=== PATIENT | female | born 1980 | race Caucasian/White ===

== ENCOUNTER → 2017-02-27 | Outpatient (CLI) | payer OTHER ==
--- NOTE | 2017-02-27 17:58 | Diagnostic Imaging Report ---
INDICATION: survey. TECHNIQUE: Multiple real-time grayscale images were obtained over the gravid uterus. COMPARISON: None FINDINGS: Jimenez gestation was observed in variable position during the study. The anterior placenta appeared normal. There was no abruption or previa. The amniotic fluid volume was within normal limits. The nondilated cervix measures greater than 4 cm. Biometrical measurements correlate with an average age of 20 weeks 5 days, reflecting normal growth from initial exam. The anatomical survey was unremarkable. IMPRESSION: Jimenez gestation today measures 20 weeks 5 days, reflecting normal growth from prior. Variable position with anterior placenta. No abruption or previa and a normal anatomical survey. Biometrical measurements are as follows: Biparietal 4.97 cm, age 21 weeks 1 days. Head circumference 18.50 cm, age 20 weeks 6 days. Abdominal circumference 15.43 cm, age 20 weeks 5 days. Femur length 3.18 cm, age 20 weeks 0 days. Sonographic estimate age: 20 weeks 5 days. Sonographic estimated date of delivery: 07/12/2017. Estimated Weight: 349 gm (+/- 51 gm). LMP percentile: 41%. heart rate: 147 beats per minute. number: 1 of 1. Dictated by: Dictated on workstation # [id number]
== END ==
LOC: RAD 16:25
PROVIDERS: ATTEND Obstetrics & Gynecology
DX: Z34.92 Encounter for supervision of normal pregnancy, unspecified, second trimester (principal); Z3A.20 20 weeks gestation of pregnancy
CPT/HCPCS: 76805

== ENCOUNTER 2017-05-22 08:52 | Outpatient (RCR) | payer MEDICAID ==
[2017-05-16 12:27] VITALS: BP 130/71
[2017-05-16] MEDS: IRON SUCROSE 300 MG/NS 250 ML (IVPB) IV SCH ×2 (13:06)
[2017-05-16 15:02] VITALS: BP 130/71
[2017-05-18 09:11] VITALS: BP 121/79
[2017-05-18] MEDS: IRON SUCROSE 300 MG/NS 250 ML (IVPB) IV SCH ×2 (09:14)
[2017-05-18 10:54] VITALS: BP 121/79
[~2017-05-22] VITALS: Ht 165.1 cm; Wt 97.5 kg
[2017-05-22 09:25] VITALS: BP 131/65
[2017-05-22] MEDS: IRON SUCROSE 300 MG/NS 250 ML (IVPB) IV SCH ×2 (09:25)
[2017-05-22 10:55] VITALS: BP 131/65
== END 2017-05-22 11:02 | disposition home or self-care (01) ==
LOC: SDC 08:52
PROVIDERS: ATTEND Obstetrics & Gynecology
DX: O99.013 Anemia complicating pregnancy, third trimester (principal); D64.9 Anemia, unspecified; R79.0 Abnormal level of blood mineral
CPT/HCPCS: 96365

== ENCOUNTER 2017-07-06 08:05 | Inpatient (IN) | payer MEDICAID ==
[2017-07-06] VITALS (64 sets, daily range): BP systolic 100–143; BP diastolic 52–97
[~2017-07-06] VITALS: Ht 165.1 cm; Wt 108.9 kg
[2017-07-06] MEDS ORDERED: D5 LR IV SOLUTION 1,000 ML IV ONE (08:22)
--- OUTSIDE RECORDS SUMMARY | 2017-07-06 08:24 | XMS REPORT ---
Author Author JERRELL SILVERMAN Organization [employer] Address Unknown Phone Unavailable Care Team Providers Care Banquet Director Name Role Phone JERRELL SILVERMAN CP Unavailable Allergies No Known Allergies Problems Problem Type Condition ICD-9 Code Onset Dates Condition Status Problem Acute upper respiratory infections of unspecified site 465.9 Active Problem Acute pharyngitis 462 Active Problem Urinary tract infection, site not specified 599.0 Active Assessment Dental examination V72.2 Active Problem Unspecified labyrinthitis 386.30 Active Problem examination or test, negative result V72.41 Active Problem Screening for unspecified malignant neoplasm V76.9 Active Problem Unspecified disorder of skin and subcutaneous tissue 709.9 Active Problem Counseling on substance use and abuse V65.42 Active Problem Pain in joint, pelvic region and thigh 719.45 Active Problem Screening examination for venereal disease V74.5 Active Problem Acute sinusitis, unspecified 461.9 Active Medications No Known Medications Procedures Procedure Coding System Code Date INTRAORL-PERIAPICAL 1 FILM 52091 CPT-4 D0220 Nov 19, 2014 BITEWING - SINGLE FILM CPT-4 D0270 Nov 19, 2014 LTD ORAL EVALUATION - PROBLEM FOCUS CPT-4 D0140 Nov 19, 2014 EXTRAC ERUPTED TOOTH/EXPOSED ROOT CPT-4 D7140 Nov 19, 2014 Results No Known Results Summary Purpose [employer] Submission
[2017-07-06] MEDS: D5 LR IV SOLUTION 1,000 ML IV SCH ×2 (08:40→16:26)
[2017-07-06] MEDS ORDERED: OXYTOCIN/NORMAL SALINE 500 ML IV SCH (09:04)
[2017-07-06] MEDS ORDERED: MINERAL OIL CONCENTRATE 99.9% 15 ML UDC TOP PRN (09:15)
[2017-07-06 09:22] LABS: BASOPHILS % (AUTO) 0 % (0-10); EOSINOPHILS # (AUTO) 0.3 10^3/uL (0.0-0.3); EOSINOPHILS % (AUTO) 2 % (0-10); HEMATOCRIT 28 % (35-52); HEMOGLOBIN 9.2 G/DL (11.5-16.0); LYMPHOCYTES # (AUTO) 1.3 X 10^3 (1.0-4.0); LYMPHOCYTES % (AUTO) 12 % (12-44); MEAN CORPUSCULAR HEMOGLOBIN 26 PG (25-34); MEAN CORPUSCULAR HGB CONC 33 G/DL (32-36); MEAN CORPUSCULAR VOLUME 79 FL (80-99); MEAN PLATELET VOLUME 9.3 FL (7.4-10.4); MONOCYTES # (AUTO) 0.6 X 10^3 (0.0-1.0); MONOCYTES % (AUTO) 6 % (0-12); NEUTROPHILS # (AUTO) 8.8 X 10^3 (1.8-7.8); NEUTROPHILS % (AUTO) 79 % (42-75); PLATELET COUNT 393 10^3/uL (130-400); RED BLOOD COUNT 3.56 10^6/uL (4.35-5.85); RED CELL DISTRIBUTION WIDTH 17.6 % (10.0-14.5)
[2017-07-06] MEDS ORDERED: MISOPROSTOL 100 MCG (CYTOTEC) TAB PO NR (09:30)
[2017-07-06 09:34] LABS: BILIRUBIN,URINE NEGATIVE (NEGATIVE); CLARITY,URINE SLIGHTLY CLOUDY; COLOR,URINE YELLOW; GLUCOSE, URINE (UA) NEGATIVE (NEGATIVE); KETONES,URINE NEGATIVE (NEGATIVE); LEUKOCYTE ESTERASE ,URINE 3+ (NEGATIVE); NITRITE,URINE NEGATIVE (NEGATIVE); PH,URINE 5 (5-9); PROTEIN,URINE NEGATIVE (NEGATIVE); UROBILINOGEN,URINE NORMAL (NORMAL)
[2017-07-06 09:52] LABS: BACTERIA,URINE LARGE /HPF
[2017-07-06] MEDS: LACTATED RINGERS 1,000 ML IV SCH ×3 (12:30→23:59)
[2017-07-06] MEDS ORDERED: SUFENTA 0.6MCG/ML BUPIVA 0.125 100 ML ONE (12:39)
[2017-07-06] MEDS: EPIDURAL (SUFENTA 0.6MCG/ML BUPIVA 0.125%) 100 ML BAG EPI SCH ×2 (13:19→19:42)
[2017-07-06] MEDS ORDERED: ONDANSETRON 4 MG/2 ML (SDV) Z0FRAN IV PRN (13:30)
[2017-07-06] MEDS ORDERED: NALOXONE 0.4 MG/ML 1 ML (NARCAN) VIAL IV PRN ×2 (13:30)
[2017-07-06] MEDS ORDERED: METOCLOPRAMIDE INJ 10 MG/2 ML (REGLAN) IV PRN (13:30)
[2017-07-06] MEDS ORDERED: diphenhydrAMINE 50 MG/ML INJ (BENADRYL) IV PRN (13:30)
[2017-07-06] MEDS ORDERED: fentaNYL INJECTION 100 MCG/2 ML AMP ONE ×2 (17:59→23:34)
[2017-07-06] MEDS ORDERED: BUPIVACAINE 0.25% 30 ML (SENSORCAINE) VIAL ONE (17:59)
[2017-07-06] MEDS ORDERED: LIDOCAINE PF 2% 5 ML (XYLOCAINE) VIAL ONE ×2 (17:59→20:42)
[2017-07-06] MEDS ORDERED: LIDOCAINE/EPI 2% 1:200,00 (XYLOCAINE) 10 ML VIAL ONE (19:27)
[2017-07-06] MEDS ORDERED: ceFAZolin 2 GM IV Premixed 50 ML ONE (23:01)
[2017-07-06] MEDS ORDERED: CITRIC ACID/SOB CIT (BICITRA) 30 ML UDC ONE (23:01)
[2017-07-06] MEDS ORDERED: FAMOTIDINE 20MG/2ML IV (PEPCID) ONE (23:02)
[2017-07-06] MEDS ORDERED: OXYTOCIN/NORMAL SALINE 1,000 ML IV ONE (23:14)
--- NOTE | 2017-07-06 23:32 | Progress Note-Pre Operative ---
Pre-Operative Progress Note H&P Reviewed The H&P was reviewed, patient examined and no changes noted. Patient is AMA and was induced at 39 2/7 weeks. She had misoprostol 100 mcg x 1 and then AROM with oxytocin augmentation. She has remained at 6 cm for several hours despite position changes, epidural replacement, etc. However, her contractions were not able to get adequate due to decelerations. Also had to have epidural replaced/redosed due to discomfort. We had discussed post tubal ligation for permanent contraception (would be referred at 6 weeks post ) but, as she desires risk reduction of ovarian cancer as well, will plan to do the salpingectomy at this time. Proper consents have been signed. Will use prophylactic Ancef and zithromax as she has been ruptured for several hours. Date Seen by Provider: Jul 06, 2017 Time Seen by Provider: 11:15 Date H&P Reviewed: Jul 06, 2017 Time H&P Reviewed: :15 Pre-Operative Diagnosis: Arrest of dilation, desire for ovarian cancer reduction LIZETH BONILLA DO Jul 06, 2017 23:32
[2017-07-06] MEDS ORDERED: AZITHROMYCIN 500 MG (ZITHROMAX) VIAL ONE (23:42)
[2017-07-06] MEDS ORDERED: NS (IVPB) 250 ML ONE (23:44)
[2017-07-06] MEDS ORDERED: METOCLOPRAMIDE INJ 10 MG/2 ML (REGLAN) IV ONE (23:45)
[2017-07-06] MEDS ORDERED: AZITHROMYCIN INJECTION 500 MG in NS (IVPB) 250 ML IV ONE (23:45)
[2017-07-06] MEDS ORDERED: FAMOTIDINE 20MG/2ML IV (PEPCID) IV ONE (23:45)
[2017-07-06] MEDS ORDERED: ceFAZolin 2 GM IV Premixed 50 ML IV ONE (23:45)
[2017-07-06] MEDS ORDERED: CITRIC ACID/SOB CIT (BICITRA) 30 ML UDC PO ONE (23:45)
[2017-07-07] MEDS ORDERED: diphenhydrAMINE 50 MG/ML INJ (BENADRYL) IV PRN (00:30)
[2017-07-07] MEDS ORDERED: ONDANSETRON 4 MG/2 ML (SDV) Z0FRAN IV PRN (00:30)
[2017-07-07] MEDS ORDERED: NALOXONE 0.4 MG/ML 1 ML (NARCAN) VIAL IV PRN (00:30)
[2017-07-07] MEDS: CATHETER FLUSH 10 ML SYR IV SCH (00:32)
[2017-07-07] MEDS ORDERED: ONDANSETRON 4 MG/2 ML (SDV) Z0FRAN ONE (00:32)
[2017-07-07] MEDS: MISOPROSTOL 100 MCG (CYTOTEC) TAB PO SCH (00:33)
[2017-07-07] MEDS ORDERED: OXYTOCIN/NORMAL SALINE 500 ML IV SCH (00:44)
[2017-07-07] MEDS ORDERED: D5 LR IV SOLUTION 1,000 ML IV SCH (00:44)
[2017-07-07] MEDS ORDERED: MEASLES,MUMPS,RUBELLA 1 EA INJ SC SCH (00:45)
[2017-07-07] MEDS ORDERED: HYDROmorphone (DILAUDID) 2 MG/ML VIAL IVP PRN (00:45)
[2017-07-07] MEDS ORDERED: TETANUS,DIPTH,PERTUSS P/F (BOOSTRIX) 0.5 ML VIAL IM SCH (00:45)
--- NOTE | 2017-07-07 00:58 | Cesarean Section Operative ---
Procedure Procedure Note Pre-operative Diagnosis: Leonora Oshea is a 36 /Para 2 /1 , Gestational Age 39 3/7 weeks, arrest of dilation, risk reduction of ovarian cancer Post-operative Diagnosis: same Procedure: Primary low transverse section Physician: LIZETH BONILLA Vp [employer]: VALERIE Sanchez Estimated blood loss: 400 mL Disposition: stable Findings: Viable male , Apgars8/9, weight 7#7oz, intact placenta, 3vc, normal appearing uterus, tubes, and ovaries. Indications:Leonora Oshea is a (36 /Para 2 /1 ,Gestational Age 39 3/ 7 weeks, arrest of dilation, risk reduction of ovarian cancer, who presented for induction of labor due to advanced maternal age. See preop note. section due to arrest of dilation. We had previously discussed post tubal ligation and Title XIX was signed. However, as abdominal surgery was necessary, it was decided to proceed with risk reduction salpingectomy at this time to avoid an additional surgery. Procedure Details: The patient was seen in pre-op and the procedure was discussed with the patient in full, including the risks, benefits, and alternatives. All questions were answered. The patient was taken to the operating room and a time out was performed, verifying patient and procedure. After spinal anesthesia was placed by our anesthesia colleagues, the patient was placed in the dorsal supine with leftward tilt for uterine displacement.~ Her abdomen was then prepped and draped in the typical sterile fashion. A Pfannenstiel skin incision was made using a scalpel and carried down through the underlying fascia. The fascia was incised in the midline and tented up using Willa clamps. On both the inferior and superior fascia side the rectus muscle was dissected off bluntly and sharply using Armendariz scissors. The peritoneum was identified and entered bluntly in the midline. This was then stretched laterally using manual strength. After entering the abdominal cavity and confirming lack of intraperitoneal adhesions, an extra large Chad retractor was placed and the lower uterine segment was visualized. A scalpel was utilized to make a low transverse uterine incision. Amniotomy was performed with an Allis clamp with return of clear fluid. The 's head was grasped and brought to the level of the incision and delivered with assistance of a Silastic suction. It was noted to be in the transverse presentation with a caput noted. Fundal pressure was applied and was delivered without difficulty. Mouth and nares were suctioned with bulb suction. After the umbilical cord was clamped and cut, the infant was handed off to the pediatric staff. A sample of cord blood was then obtained. The placenta was delivered intact via uterine massage. The uterus was cleared of all clots and debris. The uterine incision was closed using 0 Vicryl in a running locked fashion. A second imbricated layer was placed using 0 Vicryl in a running fashion as well. The gutters were cleared of all clots and debris. Again the hysterotomy site was examined and hemostasis was observed. The bilateral tubes and ovaries appeared normal. At this point a bilateral salpingectomy was performed. I elevated each tube with judy clamps and then clamped across the mesosalpinx with the LigaSure and then clamped across the tube a the cornu with the LigaSure and excise this and sent for pathology. A final check of the uterine incision showed it to be hemostatic. The peritoneum was closed using 3-0 Vicryl in a running fashion. The fascia was closed with 0 Vicryl in a running fashion. The subcutaneous space was hemostatic, and irrigated. The subcutaneous space was closed with 3-0 Vicryl in several single interrupted stitches. The skin was then closed using 4-0 Monocryl in a running subcuticular fashion. The skin edges were reapproximated together and were hemostatic. A pressure dressing was applied. All sponge, lap and needle counts were correct at the end of the procedure per nursing. Vitals - Labs Vital Signs - I&O Vital Signs Date Time Temp Pulse Resp B/P (MAP) Pulse Ox O2 Delivery O2 Flow Rate FiO2 07/06/17 23:40 81 18 106/56 (73) 07/06/17 23:30 97.1 86 18 110/60 (77) 07/06/17 23:15 77 18 118/67 (84) 07/06/17 23:00 79 18 134/70 (91) 07/06/17 22:45 73 18 117/68 (84) 07/06/17 22:30 74 18 120/60 (80) 07/06/17 22:15 07/06/17 22:00 75 18 111/55 (73) 07/06/17 21:45 80 18 100/59 (73) 4/6/18 21:30 75 18 100/55 (70) 07/06/17 21:15 73 18 130/66 (87) 07/06/17 21:00 71 18 125/67 (86) 07/06/17 20:45 80 18 118/71 (87) 07/06/17 20:30 77 18 119/63 (81) 07/06/17 20:15 77 18 119/58 (78) 07/06/17 19:45 77 18 119/58 (78) 07/06/17 19:30 97.8 83 18 117/84 (95) 07/06/17 19:15 86 18 124/56 (78) 07/06/17 19:02 78 18 111/58 (75) 07/06/17 18:58 77 18 120/80 (93) 07/06/17 18:52 95 18 113/57 (75) 07/06/17 18:48 97.4 78 18 117/56 (76) 07/06/17 18:43 85 18 123/60 (81) 07/06/17 18:37 78 18 142/76 (98) 07/06/17 18:32 78 18 141/95 (110) 07/06/17 18:28 78 18 135/93 (107) 07/06/17 18:24 77 18 125/97 (106) 07/06/17 18:18 74 18 129/92 (104) 07/06/17 18:14 74 18 127/58 (81) 07/06/17 18:01 70 18 122/54 (76) 07/06/17 17:45 78 18 113/56 (75) 07/06/17 17:30 79 18 101/55 (70) 07/06/17 17:17 73 18 143/62 (89) 07/06/17 17:02 70 18 132/60 (84) 07/06/17 16:47 75 18 121/58 (79) 07/06/17 16:32 73 18 120/72 (88) 07/06/17 16:16 71 18 133/76 (95) 07/06/17 16:03 73 18 134/80 (98) 07/06/17 15:46 97.9 70 18 132/95 (107) 07/06/17 15:31 75 18 138/90 (106) 07/06/17 15:16 81 18 136/73 (94) 07/06/17 15:01 79 18 107/58 (74) 07/06/17 14:45 75 18 115/56 (75) 07/06/17 14:31 85 18 106/52 (70) 07/06/17 14:11 87 18 129/60 (83) 99 07/06/17 14:05 83 18 133/60 (84) 98 07/06/17 14:00 87 18 125/58 (80) 98 07/06/17 13:55 87 18 135/58 (83) 99 07/06/17 13:45 78 18 127/63 (84) 97 07/06/17 13:42 80 18 131/57 (81) 100 07/06/17 13:36 77 18 126/60 (82) 99 07/06/17 13:32 83 18 130/58 (82) 97 07/06/17 13:29 80 18 116/60 (78) 99 07/06/17 13:26 78 18 126/64 (84) 99 07/06/17 13:22 98.0 79 18 126/66 (86) 100 07/06/17 13:16 81 18 132/75 (94) 99 07/06/17 13:12 81 18 122/70 (87) 100 07/06/17 13:08 78 18 119/73 (88) 100 07/06/17 13:01 80 18 119/73 (88) 07/06/17 12:32 78 18 129/60 (83) 07/06/17 11:55 96.7 77 18 134/80 (98) 07/06/17 10:25 79 18 111/61 (78) 07/06/17 09:45 97.3 85 18 136/65 (88) 07/06/17 08:55 90 18 118/68 (85) 07/06/17 08:24 96 18 140/70 (93) I & O 07/07/17 07:00 Intake Total 2900 ml Output Total 400 ml Balance 2500 ml Labs Laboratory Tests 07/06/17 08:15: Urine Color YELLOW, Urine Clarity SLIGHTLY CLOUDY, Urine pH 5, Urine Specific Adel 1.020, Urine Protein NEGATIVE, Urine Glucose (UA) NEGATIVE, Urine Ketones NEGATIVE, Urine Nitrite NEGATIVE, Urine Bilirubin NEGATIVE, Urine Urobilinogen NORMAL, Urine Leukocyte Esterase 3+H, Urine RBC (Auto) 3+H, Urine RBC 5-10H, Urine WBC 5-10H, Urine Squamous Epithelial Cells 10-25H, Urine Crystals NONE, Urine Bacteria LARGEH, Urine Casts NONE, Urine Mucus NEGATIVE, Urine Culture Indicated NO 07/06/17 08:40: White Blood Count 11.0, Red Blood Count 3.56L, Hemoglobin 9.2L, Hematocrit 28L, Mean Corpuscular Volume 79L, Mean Corpuscular Hemoglobin 26, Mean Corpuscular Hemoglobin Concent 33, Red Cell Distribution Width 17.6H, Platelet Count 393, Mean Platelet Volume 9.3, Neutrophils (%) (Auto) 79H, Lymphocytes (%) (Auto) 12 , Monocytes (%) (Auto) 6, Eosinophils (%) (Auto) 2, Basophils (%) (Auto) 0, Neutrophils # (Auto) 8.8H, Lymphocytes # (Auto) 1.3, Monocytes # (Auto) 0.6, Eosinophils # (Auto) 0.3, Basophils # (Auto) 0.0 LIZETH BONILLA DO Jul 07, 2017 00:58
[2017-07-07] MEDS: KETOROLAC 30 MG/ML VIAL IVP SCH ×4 (02:16→19:46)
[2017-07-07 03:19] VITALS: BP 107/60
[2017-07-07] MEDS: HYDROcodone/APAP 5 MG/325 MG (LORTAB) TAB PO PRN ×3 (04:16→19:45)
[2017-07-07 08:36] VITALS: BP 111/59
[2017-07-07] MEDS: DOCUSATE SODIUM 100 MG (COLACE) CAP PO SCH ×2 (08:40→19:45)
--- NOTE | 2017-07-07 10:52 | Anesthesia-Regional Post-Op ---
Regional Patient Condition Mental Status: Alert, Oriented x3 Circulation: Same as Pre-Op Headache: Absent Sensation: Full Recovery Motor Block: Absent Post Op Complications Complications None Follow Up Care/Instructions Patient Instructions None needed. Anesthesia/Patient Condition Patient is doing well, no complaints, stable vital signs, no apparent adverse anesthesia problems. No complications reported per nursing. LINDY BUTTS CRNA Jul 07, 2017 10:52
[2017-07-07 13:13] VITALS: BP 111/61
[2017-07-07 16:45] VITALS: BP 100/59
[2017-07-07] MEDS: CEPHALEXIN 250 MG (KEFLEX) CAP PO SCH (19:45)
[2017-07-07] MEDS: IRON POLYSAC 150 MG CAP (NIFEREX) PO SCH (19:45)
[2017-07-07 19:50] VITALS: BP 123/76
[2017-07-08] VITALS (10 sets, daily range): BP systolic 99–129; BP diastolic 49–70
[2017-07-08] MEDS: IBUPROFEN 600 MG (MOTRIN) TAB PO SCH ×4 (02:26→21:27)
[2017-07-08 05:13] LABS: BASOPHILS % (AUTO) 0 % (0-10); EOSINOPHILS # (AUTO) 0.4 10^3/uL (0.0-0.3); EOSINOPHILS % (AUTO) 3 % (0-10); HEMATOCRIT 24 % (35-52); HEMOGLOBIN 7.4 G/DL (11.5-16.0); LYMPHOCYTES # (AUTO) 0.9 X 10^3 (1.0-4.0); LYMPHOCYTES % (AUTO) 8 % (12-44); MEAN CORPUSCULAR HEMOGLOBIN 25 PG (25-34); MEAN CORPUSCULAR HGB CONC 31 G/DL (32-36); MEAN CORPUSCULAR VOLUME 81 FL (80-99); MEAN PLATELET VOLUME 8.7 FL (7.4-10.4); MONOCYTES # (AUTO) 0.8 X 10^3 (0.0-1.0); MONOCYTES % (AUTO) 7 % (0-12); NEUTROPHILS # (AUTO) 9.1 X 10^3 (1.8-7.8); NEUTROPHILS % (AUTO) 82 % (42-75); PLATELET COUNT 336 10^3/uL (130-400); RED BLOOD COUNT 2.95 10^6/uL (4.35-5.85); RED CELL DISTRIBUTION WIDTH 17.6 % (10.0-14.5); WHITE BLOOD COUNT 11.2 10^3/uL (4.3-11.0)
[2017-07-08] MEDS: IRON POLYSAC 150 MG CAP (NIFEREX) PO SCH ×2 (08:27→17:56)
[2017-07-08] MEDS: DOCUSATE SODIUM 100 MG (COLACE) CAP PO SCH ×2 (08:27→21:27)
[2017-07-08] MEDS: CEPHALEXIN 250 MG (KEFLEX) CAP PO SCH ×2 (08:30→21:27)
[2017-07-08] MEDS: HYDROcodone/APAP 5 MG/325 MG (LORTAB) TAB PO PRN ×2 (08:30→14:14)
--- NOTE | 2017-07-08 12:45 | Postpartum Progress Note ---
Post Op Post-operative Day #1 s/p PLTCS UTI ( E Coli) and BV on admission UTI, treated with Keflex and Flagyl. Patient complains of tachycardia/PVCs with rising. She has history of low ferritin and iron deficiency this . Requiring IV Iron treatment. Subjective: Patient is without complaints. Ambulating, voiding after douglas removed. Tolerating a regular diet without nausea or vomiting. Normal lochia. Pain is well controlled with oral pain medications. Passing flatus. Objective: Laboratory Tests Test 07/08/17 04:50 Range/Units White Blood Count 11.2 H 4.3-11.0 10^3/uL Red Blood Count 2.95 L 4.35-5.85 10^6/uL Hemoglobin 7.4 L 11.5-16.0 G/DL Hematocrit 24 L 35-52 % Mean Corpuscular Volume 81 80-99 FL Mean Corpuscular Hemoglobin 25 25-34 PG Mean Corpuscular Hemoglobin Concent 31 L 32-36 G/DL Red Cell Distribution Width 17.6 H 10.0-14.5 % Platelet Count 336 130-400 10^3/uL Mean Platelet Volume 8.7 7.4-10.4 FL Neutrophils (%) (Auto) 82 H 42-75 % Lymphocytes (%) (Auto) 8 L 12-44 % Monocytes (%) (Auto) 7 0-12 % Eosinophils (%) (Auto) 3 0-10 % Basophils (%) (Auto) 0 0-10 % Neutrophils # (Auto) 9.1 H 1.8-7.8 X 10^3 Lymphocytes # (Auto) 0.9 L 1.0-4.0 X 10^3 Monocytes # (Auto) 0.8 0.0-1.0 X 10^3 Eosinophils # (Auto) 0.4 H 0.0-0.3 10^3/uL Basophils # (Auto) 0.0 0.0-0.1 10^3/uL 07/08/17 07/08/17 02:26 08:33 Temp 98.7 98.5 Pulse 102 110 Resp 18 18 B/P (MAP) 117/66 (83) 129/54 (79) Pulse Ox 99 98 O2 Delivery Room Air Room Air Physical Exam: General - Alert and oriented, no apparent distress Abdomen - Soft, appropriately tender to palpation, non-distended, fundus firm at umbilicus Incision - clean, dry and intact; no erythema or induration, no drainage Extremities - no edema, negative Anuradha's bilaterally Assessment: 1. post-operative day # 1, status post PLTCS, RRS. Recovering well, hemodynamically stable 2. Acute blood loss anemia, chronic anemia (requiring iron infusions this ) Plan: Routine post-operative care. Encourage breast feeding. Encourage ambulation. VTE prophylaxis: SCDs. Ferrous sulfate supplementation. Transfuse 2 units Plan for discharge tomorrow Vitals - Labs Vital Signs - I&O Vital Signs Date Time Temp Pulse Resp B/P (MAP) Pulse Ox O2 Delivery O2 Flow Rate FiO2 07/08/17 08:33 98.5 110 18 129/54 (79) 98 Room Air 07/08/17 02:26 98.7 102 18 117/66 (83) 99 Room Air 07/07/17 19:50 98.1 88 18 123/76 (92) 98 Room Air 07/07/17 16:45 97.0 85 18 100/59 (73) 99 Room Air 07/07/17 13:13 97.1 86 18 111/61 (78) Room Air I & O 07/08/17 07:00 Intake Total 1800 ml Output Total 1600 ml Balance 200 ml Labs Laboratory Tests 07/08/17 04:50: White Blood Count 11.2H, Red Blood Count 2.95L, Hemoglobin 7.4L, Hematocrit 24L , Mean Corpuscular Volume 81, Mean Corpuscular Hemoglobin 25, Mean Corpuscular Hemoglobin Concent 31L, Red Cell Distribution Width 17.6H, Platelet Count 336, Mean Platelet Volume 8.7, Neutrophils (%) (Auto) 82H, Lymphocytes (%) (Auto) 8L , Monocytes (%) (Auto) 7, Eosinophils (%) (Auto) 3, Basophils (%) (Auto) 0, Neutrophils # (Auto) 9.1H, Lymphocytes # (Auto) 0.9L, Monocytes # (Auto) 0.8, Eosinophils # (Auto) 0.4H, Basophils # (Auto) 0.0 Microbiology 07/06/17 Urine Culture - Final, Complete Gram Negative Ulises LIZETH BONILLA DO Jul 08, 2017 12:45
[2017-07-08] MEDS ORDERED: diphenhydrAMINE 25 MG TAB (BENADRYL) PO PRN (13:30)
[2017-07-08] MEDS ORDERED: ACETAMINOPHEN 500 MG TAB (TYLENOL) PO PRN (13:30)
[2017-07-08] MEDS: metroNIDAZOLE 500 MG (FLAGYL) TAB PO SCH ×2 (14:14→21:27)
[2017-07-08] MEDS ORDERED: NS IV 500 ML 500 ML IV SCH (14:45)
[2017-07-09] MEDS: HYDROcodone/APAP 5 MG/325 MG (LORTAB) TAB PO PRN (01:54)
[2017-07-09 01:55] VITALS: BP 105/59
[2017-07-09] MEDS: IBUPROFEN 600 MG (MOTRIN) TAB PO SCH ×2 (03:07→08:51)
[2017-07-09 07:45] VITALS: BP 122/77
[2017-07-09 08:00] VITALS: BP 122/77
[2017-07-09] MEDS: CEPHALEXIN 250 MG (KEFLEX) CAP PO SCH (08:50)
[2017-07-09] MEDS: IRON POLYSAC 150 MG CAP (NIFEREX) PO SCH (08:51)
[2017-07-09] MEDS: metroNIDAZOLE 500 MG (FLAGYL) TAB PO SCH (08:51)
[2017-07-09] MEDS: DOCUSATE SODIUM 100 MG (COLACE) CAP PO SCH (08:51)
--- NOTE | 2017-07-09 09:04 | Progress Note-Standard ---
Standard Progress Note Progress Notes/Assess & Plan Date Seen by Provider: Jul 09, 2017 Time Seen by Provider: 09:00 Progress/Assessment & Plan Repeat Hgb pending. s/p 2 units PRBCs 07/09/17 01:55 Temp 98.3 Pulse 78 Resp 20 B/P (MAP) 105/59 (74) Pulse Ox 99 O2 Delivery Room Air Plan DC home today LIZETH BONILLA DO Jul 09, 2017 09:04
--- NOTE | 2017-07-09 09:11 | Discharge Inst-Women's Service ---
Discharge Inst-Women's Serv Depart Medication/Instructions New, Converted or Re-Newed RX: RX on Chart Final Diagnosis arrest of dilation primary section advanced maternal age, multiparous low ferritin, chronic anemia acute blood loss anemia (hgb 7) Consults/Follow Up Additional Follow Up: Yes (1 week for hgb and inc check with Letitia, 6 week pp exam) Activity Activity: Activity as Tolerated Driving Instructions: No Driving for 1 Week NO SMOKING: NO SMOKING Nothing Inside Vagina: No Douching, No [place], No Tampons Diet Discharge Diet: No Restrictions Symptoms to Report to DrCata: Bleeding Excessive, Pain Increased, Fever Over 101 Degrees F, Vaginal Bleeding Increase, Cramps in Feet or Legs, Vaginal Discharge Foul For Any Problems or Questions: Contact Your Physician Skin/Wound Care Infection Signs and Symptoms: Increased Redness, Foul Odor of Wound, Increased Drainage, Skin Itchy or Has a Rash, Increased Swelling, Temperature Above 101 F Operative Area Clean and Dry: Do Not Remove Bandage Stitches/Megan/Dermabond: Dermabond Bathing Instructions: LIZETH Arauz DO Jul 09, 2017 09:11
[2017-07-09 09:14] LABS: BASOPHILS % (AUTO) 0 % (0-10); EOSINOPHILS # (AUTO) 0.7 10^3/uL (0.0-0.3); EOSINOPHILS % (AUTO) 6 % (0-10); HEMATOCRIT 28 % (35-52); HEMOGLOBIN 8.9 G/DL (11.5-16.0); LYMPHOCYTES # (AUTO) 1.1 X 10^3 (1.0-4.0); LYMPHOCYTES % (AUTO) 10 % (12-44); MEAN CORPUSCULAR HEMOGLOBIN 26 PG (25-34); MEAN CORPUSCULAR HGB CONC 32 G/DL (32-36); MEAN CORPUSCULAR VOLUME 80 FL (80-99); MEAN PLATELET VOLUME 9.5 FL (7.4-10.4); MONOCYTES # (AUTO) 0.5 X 10^3 (0.0-1.0); MONOCYTES % (AUTO) 5 % (0-12); NEUTROPHILS # (AUTO) 8.4 X 10^3 (1.8-7.8); NEUTROPHILS % (AUTO) 79 % (42-75); PLATELET COUNT 304 10^3/uL (130-400); RED BLOOD COUNT 3.42 10^6/uL (4.35-5.85); RED CELL DISTRIBUTION WIDTH 16.9 % (10.0-14.5); WHITE BLOOD COUNT 10.6 10^3/uL (4.3-11.0)
[2017-07-09] MEDS ORDERED: ACHD5005 PO (09:18)
[2017-07-09] MEDS ORDERED: CEPH250C PO (09:18)
[2017-07-09] MEDS ORDERED: METR500T21 PO (09:18)
[2017-07-09] MEDS ORDERED: IRON150C3 PO (09:18)
[2017-07-09] MEDS ORDERED: DOCU100C37 PO (09:18)
[2017-07-09] MEDS ORDERED: IBUP-1773 PO (09:18)
[2017-07-09 11:25] VITALS: BP 122/77
== END 2017-07-09 11:25 | disposition home or self-care (01) | DRG 765 ==
LOC: LDRP 08:05
PROVIDERS: ADMIT Obstetrics & Gynecology; ATTEND Obstetrics & Gynecology
PROC: 0UT70ZZ Resection of Bilateral Fallopian Tubes, Open Approach (ICD-10-PCS; 2017-07-06)
PROC: 3E0P7GC Introduction of Other Therapeutic Substance into Female Reproductive, Via Natural or Artificial Opening (ICD-10-PCS; 2017-07-06)
PROC: 10D00Z1 Extraction of Products of Conception, Low, Open Approach (ICD-10-PCS; principal; 2017-07-06 23:46)
DX: O99.02 Anemia complicating childbirth (principal); D64.9 Anemia, unspecified; O09.523 Supervision of elderly multigravida, third trimester; O90.81 Anemia of the puerperium; D62 Acute posthemorrhagic anemia; O62.0 Primary inadequate contractions; Z3A.39 39 weeks gestation of pregnancy; Z37.0 Single live birth; Z23 Encounter for immunization
CPT/HCPCS: 36415; 81000; 85025; 86850; 86900; 86901; 86920; 87088; 90715; 94664

== ENCOUNTER 2017-09-26 16:53 | Outpatient (RCR) | payer MEDICAID ==
[~2017-09-26] VITALS: Ht 165.1 cm; Wt 91.2 kg
[2017-09-26 16:00] VITALS: BP 124/76
[~2017-09-26 16:53] MED LIST: ACHD5005 PO; CEPH250C PO; DOCU100C37 PO; IBUP-1773 PO; IRON150C3 PO; METR500T21 PO
[2017-09-26 17:00] VITALS: BP 124/76
[2017-09-26] MEDS ORDERED: IRON SUCROSE 200 MG/10 ML (VENOFER) VIAL IV ONE (17:06)
[2017-09-26] MEDS ORDERED: IRON SUCROSE 200 MG/10 ML (VENOFER) VIAL IV SCH (17:30)
[2017-09-26 17:49] VITALS: BP 124/76
--- NOTE | 2017-09-27 11:24 | Physician Query-Final Dx ---
GABE RIZVI 09/27/17 1124: Clinic Account Progress/Dx Physician Query: Please give a diagnosis for the Venofer treatment thank you Date of Service Sep 26, 2017 at 16:53 LIZETH BONILLA DO 10/13/17 1803: Clinic Account Progress/Dx DIAGNOSIS: Diagnosis low ferritin iron deficiency anemia GABE RIZVI Sep 27, 2017 11:24 LIZETH BONILLA DO Oct 13, 2017 18:03
== END 2017-12-25 | disposition home or self-care (01) ==
LOC: SDC 16:53
PROVIDERS: ATTEND Obstetrics & Gynecology
DX: D50.9 Iron deficiency anemia, unspecified (principal); R79.0 Abnormal level of blood mineral
CPT/HCPCS: 96365

== ENCOUNTER → 2020-07-20 | Outpatient (CLI) | payer BC, MEDICAID ==
[~2020-07-20] MED LIST changes: +METR-145 PO; -METR500T21 PO
--- NOTE | 2020-07-20 09:54 | Diagnostic Imaging Report ---
EXAMINATION: Magnetic resonance imaging of the right knee without intravenous contrast. DATE: July 20, 2020. COMPARISON: None. INDICATION: 39-year-old female, right knee pain. TECHNIQUE: Multiplanar, multisequence non contrast enhanced MR imaging was accomplished. FINDINGS: MENISCI: There is signal in the medial meniscus not meeting strict MRI criteria for definite diagnosis of tear. There is a small longitudinal horizontal type tear involving the body and posterior horn of the lateral meniscus. LIGAMENTS AND TENDONS: The anterior and posterior cruciate ligaments are intact. The medial collateral ligament is intact. The iliotibial band, mid third lateral capsular ligament, fibular collateral ligament, biceps femoris tendon, and conjoined tendon are intact. The quadriceps tendon and patella ligament are intact. JOINT: The articular cartilage surfaces are intact. There is a moderate sized knee joint effusion. There is no identified intra-articular body or prominent synovitis. BONE: There is T2 hyperintense marrow signal in the distal femur extending to the distal aspect of the distal femoral metaphysis, most compatible with prominent red marrow. There is no acute fracture, bone contusion, or evidence of osteonecrosis. There is no focal concerning bone lesion. BURSAE AND SOFT TISSUES: There is a partially ruptured Douglas's cyst. IMPRESSION: 1. Small longitudinal horizontal type tear involving the body and posterior horn of the lateral meniscus. Grossly intact medial meniscus. 2. Intact anterior and posterior cruciate ligaments. Additional ligaments and tendons are intact. 3. Moderate knee joint effusion without intra-articular body or prominent synovitis. No visualized cartilage defect. 4. Partially ruptured Douglas's cyst. Dictated by: Dictated on workstation # [id number]
== END ==
LOC: RAD 08:00
PROVIDERS: ATTEND Nurse Practitioner Family
DX: S83.281A Other tear of lateral meniscus, current injury, right knee, initial encounter (principal); M66.0 Rupture of popliteal cyst; X58.XXXA Exposure to other specified factors, initial encounter
CPT/HCPCS: 73721